=== PATIENT | female | born 1930 | race Caucasian/White ===

== ENCOUNTER 2017-05-27 18:01 | Inpatient (IN) | payer MEDICARE, BC ==
[~2017-05-27] VITALS: Ht 162.6 cm; Wt 52.3 kg
[2017-05-27] MEDS ORDERED: diltiazem-D5W 125mg/125ml 125 ML IV ONE (18:53)
[2017-05-27 18:57] LABS: INR 0.9 INR; PARTIAL THROMBOPLASTIN TIME 21 SECONDS (22-32); PROTHROMBIN TIME 9.8 SECONDS (9.0-12.0)
[2017-05-27 19:00] LABS: ALANINE AMINOTRANSFERASE 49 U/L (12-78); ALBUMIN 3.4 G/DL (3.4-5.0); ALKALINE PHOSPHATASE 84 IU/L (46-116); ANION GAP 12 (8-16); ASPARTATE AMINO TRANSFERASE 50 U/L (10-37); BILIRUBIN,TOTAL 0.3 MG/DL (0.1-1.0); BLOOD UREA NITROGEN 18 MG/DL (7-18); BUN/CREATININE RATIO 14.6 (6.6-38.0); CALCIUM 8.9 MG/DL (8.5-10.1); CHLORIDE 103 MMOL/L (99-107); CREATININE 1.23 MG/DL (0.40-0.90); GLUCOSE 157 MG/DL (70-104); POTASSIUM 3.8 MMOL/L (3.5-5.1); SODIUM 140 MMOL/L (135-145); TOTAL PROTEIN 6.8 G/DL (6.4-8.2); eGFR 41 ML/MIN
[2017-05-27] MEDS ORDERED: ondansetron/PF 4mg/2ml inj IV ONE (19:00)
[2017-05-27 19:03] LABS: TROPONIN I < 0.04 NG/ML (0.0-0.05)
[2017-05-27] MEDS ORDERED: NO HOME MEDS (19:36)
[2017-05-27 20:00] LABS: CLARITY,URINE CLEAR (Clear); COLOR,URINE YELLOW (Yellow); GLUCOSE, URINE NEGATIVE (Neg); KETONES,URINE 40 mg/dl (Neg); LEUKOCYTE ESTERASE ,URINE NEGATIVE (Neg); NITRITES, URINE NEGATIVE (Neg); OCCULT BLOOD,URINE LARGE (Neg); PROTEIN,URINE 100 mg/dl (Neg); UROBILINOGEN,URINE 0.2 E.U/dL (0.2-1.0)
[2017-05-27 20:04] LABS: UA COLLECTION TYPE STRAIGHT CATH
[2017-05-27 20:05] LABS: BASOPHILS % (AUTO) 0.3 % (0-1); EOSINOPHILS % (AUTO) 0.7 % (0-6); HEMATOCRIT 38.6 % (35.0-45.0); HEMOGLOBIN 12.9 g/dl (12.0-16.0); LYMPHOCYTES # (AUTO) 0.5 X10'3 (1.1-4.8); LYMPHOCYTES % (AUTO) 9.7 % (21-51); MEAN CORPUSCULAR HEMOGLOBIN 29.2 PG (27.0-31.0); MEAN CORPUSCULAR HGB CONC 33.3 % (33.0-36.5); MEAN CORPUSCULAR VOLUME 87.7 FL (78-98); MEAN PLATELET VOLUME 8.9 FL (7.4-10.4); MONOCYTES # (AUTO) 0.5 X10'3 (0-0.9); MONOCYTES % (AUTO) 9.9 % (2-12); NEUTROPHILS # (AUTO) 4.1 X10'3 (1.8-7.7); NEUTROPHILS % (AUTO) 79.4 % (42-75); PLATELET COUNT 133 X10'3 (140-440); RED BLOOD COUNT 4.41 X10'6 (4.20-5.60); RED CELL DISTRIBUTION WIDTH 13.9 % (11.5-14.5); WHITE BLOOD COUNT 5.1 X10'3 (4.5-11.0)
[2017-05-27] MEDS ORDERED: LIDOcaine 1% 30ml vial SQ STA (20:07)
[2017-05-27 20:09] LABS: BACTERIA,URINE 1+ /HPF (Neg)
[2017-05-27 20:10] LABS: MUCUS STRANDS FEW /LPF (Neg); SQUAMOUS EPITHELIAL CELL,UR FEW /LPF (FEW)
[2017-05-27 20:11] LABS: AMORPHOUS URATES 1+
[2017-05-27] MEDS ORDERED: temazepam 15mg capsule PO PRN (21:00)
[2017-05-27] MEDS ORDERED: normal saline 1000ml 1,000 ML IV SCH (22:38)
[2017-05-27] MEDS ORDERED: acetaminophen 325mg tablet PO PRN ×2 (22:40)
[2017-05-27] MEDS ORDERED: metoclopramide 5 mg/ml inj IV PRN (22:40)
[2017-05-27] MEDS ORDERED: diphenhydrAMINE 25mg capsule PO PRN (22:40)
[2017-05-27] MEDS ORDERED: bisacodyl 10mg suppository rectal RC PRN (22:40)
[2017-05-27] MEDS ORDERED: acetaminophen 650mg rectal suppository RC PRN (22:40)
[2017-05-27] MEDS ORDERED: mag hydrox/Alum hydrox/simeth 30ml oral suspension PO PRN (22:40)
[2017-05-27] MEDS ORDERED: ondansetron/PF 4mg/2ml inj IV PRN (22:40)
[2017-05-27] MEDS ORDERED: magnesium hydroxide 30ml (MOM) UD suspension PO PRN (22:40)
[2017-05-27] MEDS ORDERED: diphenhydrAMINE 50 mg/ml inj IV PRN (22:40)
[2017-05-27 23:02] LABS: PHOSPHORUS 3.5 MG/DL (2.3-4.5)
[2017-05-27] MEDS: normal saline 1000ml 1,000 ML IV SCH (23:08)
[2017-05-28] VITALS: BP 100/44
[2017-05-28 06:02] LABS: BASOPHILS % (AUTO) 0.3 % (0-1); EOSINOPHILS % (AUTO) 0.7 % (0-6); HEMATOCRIT 33.9 % (35.0-45.0); HEMOGLOBIN 11.3 g/dl (12.0-16.0); LYMPHOCYTES # (AUTO) 0.7 X10'3 (1.1-4.8); LYMPHOCYTES % (AUTO) 19.3 % (21-51); MEAN CORPUSCULAR HEMOGLOBIN 29.1 PG (27.0-31.0); MEAN CORPUSCULAR HGB CONC 33.3 % (33.0-36.5); MEAN CORPUSCULAR VOLUME 87.4 FL (78-98); MEAN PLATELET VOLUME 9.4 FL (7.4-10.4); MONOCYTES # (AUTO) 0.5 X10'3 (0-0.9); NEUTROPHILS # (AUTO) 2.4 X10'3 (1.8-7.7); NEUTROPHILS % (AUTO) 66.7 % (42-75); PLATELET COUNT 130 X10'3 (140-440); RED BLOOD COUNT 3.88 X10'6 (4.20-5.60); RED CELL DISTRIBUTION WIDTH 14.1 % (11.5-14.5); WHITE BLOOD COUNT 3.7 X10'3 (4.5-11.0)
[2017-05-28 06:46] LABS: ALANINE AMINOTRANSFERASE 39 U/L (12-78); ALBUMIN 2.8 G/DL (3.4-5.0); ALKALINE PHOSPHATASE 67 IU/L (46-116); ANION GAP 10 (8-16); ASPARTATE AMINO TRANSFERASE 34 U/L (10-37); BILIRUBIN,TOTAL 0.3 MG/DL (0.1-1.0); BLOOD UREA NITROGEN 19 MG/DL (7-18); BUN/CREATININE RATIO 16.1 (6.6-38.0); CALCIUM 8.3 MG/DL (8.5-10.1); CHLORIDE 105 MMOL/L (99-107); CREATININE 1.18 MG/DL (0.40-0.90); GLUCOSE 100 MG/DL (70-104); POTASSIUM 3.8 MMOL/L (3.5-5.1); SODIUM 140 MMOL/L (135-145); TOTAL CARBON DIOXIDE 24.9 MMOL/L (24-32); TOTAL PROTEIN 5.7 G/DL (6.4-8.2); eGFR 43 ML/MIN
[2017-05-28 07:04] VITALS: BP 109/65
[2017-05-28] MEDS ORDERED: heparin, porcine 5000 units/ml vial SQ SCH (08:00)
[2017-05-28] MEDS: docusate sod 100mg capsule PO SCH ×2 (08:25→19:33)
[2017-05-28] MEDS: pantoprazole 40mg Tablet.DR PO SCH (08:25)
[2017-05-28] MEDS: aspirin 81mg tab.chew PO SCH (08:26)
[2017-05-28] MEDS: normal saline 1000ml 1,000 ML IV SCH ×2 (10:09→20:11)
[2017-05-28 11:00] VITALS: BP 105/50
[2017-05-28 19:00] VITALS: BP 134/62
[2017-05-29] VITALS: BP 149/78
[2017-05-29 05:18] LABS: BASOPHILS % (AUTO) 0.3 % (0-1); EOSINOPHILS % (AUTO) 0.5 % (0-6); HEMATOCRIT 33.1 % (35.0-45.0); HEMOGLOBIN 11.1 g/dl (12.0-16.0); LYMPHOCYTES # (AUTO) 0.5 X10'3 (1.1-4.8); LYMPHOCYTES % (AUTO) 20.3 % (21-51); MEAN CORPUSCULAR HEMOGLOBIN 29.1 PG (27.0-31.0); MEAN CORPUSCULAR HGB CONC 33.7 % (33.0-36.5); MEAN CORPUSCULAR VOLUME 86.4 FL (78-98); MONOCYTES # (AUTO) 0.4 X10'3 (0-0.9); MONOCYTES % (AUTO) 13.1 % (2-12); NEUTROPHILS # (AUTO) 1.8 X10'3 (1.8-7.7); NEUTROPHILS % (AUTO) 65.8 % (42-75); PLATELET COUNT 117 X10'3 (140-440); RED BLOOD COUNT 3.83 X10'6 (4.20-5.60); RED CELL DISTRIBUTION WIDTH 13.9 % (11.5-14.5); WHITE BLOOD COUNT 2.7 X10'3 (4.5-11.0)
[2017-05-29] MEDS: normal saline 1000ml 1,000 ML IV SCH ×2 (05:47→15:25)
[2017-05-29 05:48] LABS: ALANINE AMINOTRANSFERASE 46 U/L (12-78); ALBUMIN 2.7 G/DL (3.4-5.0); ALBUMIN/GLOBULIN RATIO 0.9 (1.1-1.5); ALKALINE PHOSPHATASE 72 IU/L (46-116); ANION GAP 7 (8-16); ASPARTATE AMINO TRANSFERASE 51 U/L (10-37); BILIRUBIN,TOTAL 0.3 MG/DL (0.1-1.0); BLOOD UREA NITROGEN 12 MG/DL (7-18); BUN/CREATININE RATIO 13.6 (6.6-38.0); CALCIUM 8.3 MG/DL (8.5-10.1); CHLORIDE 102 MMOL/L (99-107); CREATININE 0.88 MG/DL (0.40-0.90); GLUCOSE 99 MG/DL (70-104); POTASSIUM 3.4 MMOL/L (3.5-5.1); SODIUM 134 MMOL/L (135-145); TOTAL CARBON DIOXIDE 25.4 MMOL/L (24-32); TOTAL PROTEIN 5.6 G/DL (6.4-8.2); eGFR 61 ML/MIN
[2017-05-29 07:52] LABS: TOTAL CELLS COUNTED 100
[2017-05-29 07:53] LABS: PLATELET ESTIMATE DECREASED
[2017-05-29 08:00] VITALS: BP 144/89
[2017-05-29] MEDS: docusate sod 100mg capsule PO SCH ×2 (08:25→20:02)
[2017-05-29] MEDS: aspirin 81mg tab.chew PO SCH (08:26)
[2017-05-29] MEDS: pantoprazole 40mg Tablet.DR PO SCH (08:26)
[2017-05-29] MEDS ORDERED: magnesium 4gm in 100ml NS 100 ML IV PRN (11:10)
[2017-05-29] MEDS ORDERED: magnesium 2GM in 50ml NS 50 ML IV PRN (11:10)
[2017-05-29] MEDS ORDERED: potassium Cl 20 mEq SR tablet PO PRN (11:10)
[2017-05-29] MEDS ORDERED: potassium Cl 40MEQ/NS 500ml 500 ML IV PRN ×2 (11:10)
[2017-05-29] MEDS ORDERED: magnesium Cl slow-release 64mg tablet PO PRN (11:10)
[2017-05-29 12:00] VITALS: BP 125/64
[2017-05-29] MEDS: potassium Cl 20 mEq SR tablet PO PRN ×2 (16:38→22:55)
[2017-05-29 18:00] VITALS: BP 123/68
[2017-05-29] MEDS: LACTOSE-FREE FOOD 237ML (BOOST) PO SCH (18:00)
[2017-05-29] MEDS: apixaban 2.5mg tablet PO SCH (20:02)
[2017-05-30] VITALS (8 sets, daily range): BP systolic 114–142; BP diastolic 49–73
[2017-05-30] MEDS: normal saline 1000ml 1,000 ML IV SCH (01:23)
[2017-05-30 05:16] LABS: BASOPHILS % (AUTO) 0.5 % (0-1); EOSINOPHILS % (AUTO) 0.5 % (0-6); HEMATOCRIT 35.6 % (35.0-45.0); LYMPHOCYTES # (AUTO) 0.8 X10'3 (1.1-4.8); LYMPHOCYTES % (AUTO) 31.5 % (21-51); MEAN CORPUSCULAR HEMOGLOBIN 28.9 PG (27.0-31.0); MEAN CORPUSCULAR HGB CONC 33.6 % (33.0-36.5); MEAN CORPUSCULAR VOLUME 86.1 FL (78-98); MEAN PLATELET VOLUME 9.1 FL (7.4-10.4); MONOCYTES # (AUTO) 0.5 X10'3 (0-0.9); MONOCYTES % (AUTO) 19.7 % (2-12); NEUTROPHILS # (AUTO) 1.2 X10'3 (1.8-7.7); NEUTROPHILS % (AUTO) 47.8 % (42-75); PLATELET COUNT 123 X10'3 (140-440); RED BLOOD COUNT 4.13 X10'6 (4.20-5.60); RED CELL DISTRIBUTION WIDTH 13.7 % (11.5-14.5); WHITE BLOOD COUNT 2.5 X10'3 (4.5-11.0)
[2017-05-30 05:29] LABS: ALANINE AMINOTRANSFERASE 57 U/L (12-78); ALBUMIN 2.6 G/DL (3.4-5.0); ALBUMIN/GLOBULIN RATIO 0.9 (1.1-1.5); ALKALINE PHOSPHATASE 78 IU/L (46-116); ANION GAP 10 (8-16); ASPARTATE AMINO TRANSFERASE 57 U/L (10-37); BILIRUBIN,TOTAL 0.4 MG/DL (0.1-1.0); BLOOD UREA NITROGEN 10 MG/DL (7-18); BUN/CREATININE RATIO 11.8 (6.6-38.0); CHLORIDE 106 MMOL/L (99-107); CREATININE 0.85 MG/DL (0.40-0.90); GLUCOSE 102 MG/DL (70-104); MAGNESIUM 1.8 MG/DL (1.5-2.4); POTASSIUM 3.7 MMOL/L (3.5-5.1); SODIUM 140 MMOL/L (135-145); TOTAL CARBON DIOXIDE 24.3 MMOL/L (24-32); TOTAL PROTEIN 5.5 G/DL (6.4-8.2); eGFR 63 ML/MIN
[2017-05-30 05:34] LABS: CALCIUM 8.5 MG/DL (8.5-10.1)
[2017-05-30 08:09] LABS: PLATELET ESTIMATE DECREASED; TOTAL CELLS COUNTED 50
[2017-05-30] MEDS: pantoprazole 40mg Tablet.DR PO SCH (08:44)
[2017-05-30] MEDS: aspirin 81mg tab.chew PO SCH (08:45)
[2017-05-30] MEDS: LACTOSE-FREE FOOD 237ML (BOOST) PO SCH ×3 (08:45→18:10)
[2017-05-30] MEDS: apixaban 2.5mg tablet PO SCH ×2 (08:45→21:35)
[2017-05-30] MEDS: docusate sod 100mg capsule PO SCH ×2 (08:45→21:35)
[2017-05-31] VITALS: BP 143/57
[2017-05-31 04:13] LABS: HEMATOCRIT 35.1 % (35.0-45.0); HEMOGLOBIN 11.8 g/dl (12.0-16.0); MEAN CORPUSCULAR HEMOGLOBIN 28.8 PG (27.0-31.0); MEAN CORPUSCULAR HGB CONC 33.6 % (33.0-36.5); MEAN CORPUSCULAR VOLUME 85.7 FL (78-98); MEAN PLATELET VOLUME 8.9 FL (7.4-10.4); PLATELET COUNT 127 X10'3 (140-440); RED CELL DISTRIBUTION WIDTH 13.6 % (11.5-14.5); WHITE BLOOD COUNT 2.8 X10'3 (4.5-11.0)
[2017-05-31 04:20] LABS: ALANINE AMINOTRANSFERASE 57 U/L (12-78); ALBUMIN 2.7 G/DL (3.4-5.0); ALBUMIN/GLOBULIN RATIO 0.9 (1.1-1.5); ALKALINE PHOSPHATASE 85 IU/L (46-116); ANION GAP 7 (8-16); ASPARTATE AMINO TRANSFERASE 54 U/L (10-37); BILIRUBIN,TOTAL 0.4 MG/DL (0.1-1.0); BLOOD UREA NITROGEN 12 MG/DL (7-18); BUN/CREATININE RATIO 12.5 (6.6-38.0); CALCIUM 8.6 MG/DL (8.5-10.1); CHLORIDE 105 MMOL/L (99-107); CREATININE 0.96 MG/DL (0.40-0.90); GLUCOSE 105 MG/DL (70-104); MAGNESIUM 1.8 MG/DL (1.5-2.4); POTASSIUM 3.8 MMOL/L (3.5-5.1); SODIUM 140 MMOL/L (135-145); TOTAL CARBON DIOXIDE 28.5 MMOL/L (24-32); TOTAL PROTEIN 5.7 G/DL (6.4-8.2); eGFR 55 ML/MIN
[2017-05-31 07:00] VITALS: BP 128/65
[2017-05-31 07:55] LABS: TOTAL CELLS COUNTED 100
[2017-05-31 07:57] LABS: PLATELET ESTIMATE DECREASED
[2017-05-31 08:00] VITALS: BP_SYST 103; BP_SYST 110; BP_SYST 117; BP_DIAS 50; BP_DIAS 57; BP_DIAS 64
[2017-05-31] MEDS: aspirin 81mg tab.chew PO SCH (08:33)
[2017-05-31] MEDS: docusate sod 100mg capsule PO SCH (08:33)
[2017-05-31] MEDS: LACTOSE-FREE FOOD 237ML (BOOST) PO SCH ×2 (08:33→13:00)
[2017-05-31] MEDS: pantoprazole 40mg Tablet.DR PO SCH (08:33)
[2017-05-31] MEDS: apixaban 2.5mg tablet PO SCH (08:33)
== END 2017-05-31 17:32 | DRG 682 ==
LOC: ER 18:02 → ED HOLD 22:38 → SUR 3N 23:30
PROVIDERS: ADMIT Family Medicine; ATTEND Family Medicine
PROC: 0HQ0XZZ Repair Scalp Skin, External Approach (ICD-10-PCS; principal; 2017-05-27)
DX: N17.9 Acute kidney failure, unspecified (principal); I50.33 Acute on chronic diastolic (congestive) heart failure; D61.818 Other pancytopenia; D69.6 Thrombocytopenia, unspecified; I48.0 Paroxysmal atrial fibrillation; E87.1 Hypo-osmolality and hyponatremia; R55 Syncope and collapse; E87.6 Hypokalemia; K21.9 Gastro-esophageal reflux disease without esophagitis; I13.0 Hypertensive heart and chronic kidney disease with heart failure and stage 1 through stage 4 chronic kidney disease, or unspecified chronic kidney disease; S01.01XA Laceration without foreign body of scalp, initial encounter; Z60.2 Problems related to living alone; R74.0 Nonspecific elevation of levels of transaminase and lactic acid dehydrogenase [LDH]; N18.9 Chronic kidney disease, unspecified; R29.6 Repeated falls; Z91.81 History of falling; Z88.5 Allergy status to narcotic agent; Z88.0 Allergy status to penicillin; Z88.1 Allergy status to other antibiotic agents; Z91.040 Latex allergy status
CPT/HCPCS: 12001; 36415; 70450; 71010; 80053; 81001; 83735; 83880; 84100; 84484; 85025; 85610; 85730; 87070; 87088; 93306; 93880; 96374; 96375; 97116; 97161; 97530; 99285; A6449; J1644; J2405; J3490; J7030

== ENCOUNTER 2018-12-30 14:01 | Emergency (ER) | payer MEDICARE, BC ==
[~2018-12-30] VITALS: Ht 162.6 cm; Wt 52.3 kg
[~2018-12-30 14:01] MED LIST: NO HOME MEDS
[2018-12-30 14:03] VITALS: BP 143/43
[2018-12-30] MEDS ORDERED: bacitracin 15gm ointment TP ONE (15:20)
== END 2018-12-30 15:45 | disposition home or self-care (01) ==
LOC: ER 14:01
DX: S81.811A Laceration without foreign body, right lower leg, initial encounter (principal); Z88.0 Allergy status to penicillin; Z88.5 Allergy status to narcotic agent; Z88.1 Allergy status to other antibiotic agents; Z91.040 Latex allergy status; W22.8XXA Striking against or struck by other objects, initial encounter; Y93.89 Activity, other specified; Y92.89 Other specified places as the place of occurrence of the external cause; Y99.8 Other external cause status
CPT/HCPCS: 99282

== ENCOUNTER 2019-01-04 09:53 | Emergency (ER) | payer MEDICARE, BC ==
[~2019-01-04] VITALS: Ht 162.6 cm; Wt 53.8 kg
[2019-01-04 10:12] VITALS: BP 134/80
[2019-01-04] MEDS ORDERED: TETanus/Pertussis (Acell)/Diphther VAC/PF (Tdap-Adult) 0.5ml syringe IMVAC ONE (11:45)
[2019-01-04] MEDS ORDERED: cephalexin 250mg capsule PO ONE (12:00)
[2019-01-04] MEDS ORDERED: CEPH500C5 PO (12:04)
== END 2019-01-04 12:21 | disposition home or self-care (01) ==
LOC: ER 09:53
DX: L08.89 Other specified local infections of the skin and subcutaneous tissue (principal); Z88.0 Allergy status to penicillin; Z88.5 Allergy status to narcotic agent; Z88.1 Allergy status to other antibiotic agents; Z91.040 Latex allergy status
CPT/HCPCS: 90471; 99283

== ENCOUNTER 2019-01-15 14:34 | Emergency (ER) | payer MEDICARE, BC ==
[~2019-01-15] VITALS: Ht 162.6 cm; Wt 55.0 kg
[~2019-01-15 14:34] MED LIST changes: +CEPH500C5 PO
[2019-01-15 14:39] VITALS: BP 144/38
== END 2019-01-15 15:30 | disposition home or self-care (01) ==
LOC: ER 14:35
DX: S81.811D Laceration without foreign body, right lower leg, subsequent encounter (principal); L08.9 Local infection of the skin and subcutaneous tissue, unspecified; E78.00 Pure hypercholesterolemia, unspecified; Z60.2 Problems related to living alone; Z88.0 Allergy status to penicillin; Z88.5 Allergy status to narcotic agent; Z88.1 Allergy status to other antibiotic agents; Z91.040 Latex allergy status; Z88.8 Allergy status to other drugs, medicaments and biological substances; Z79.899 Other long term (current) drug therapy; X58.XXXD Exposure to other specified factors, subsequent encounter
CPT/HCPCS: 99284

== ENCOUNTER 2019-02-25 08:44 | Emergency (ER) | payer MEDICARE, BC ==
[~2019-02-25] VITALS: Ht 167.6 cm; Wt 80.0 kg
[2019-02-25 09:56] LABS: BASOPHILS % (AUTO) 0.4 % (0-1); EOSINOPHILS # (AUTO) 0.1 X10'3 (0-0.9); EOSINOPHILS % (AUTO) 0.7 % (0-6); HEMATOCRIT 39.2 % (35.0-45.0); HEMOGLOBIN 12.9 g/dl (12.0-16.0); LYMPHOCYTES % (AUTO) 10.4 % (21-51); MEAN CORPUSCULAR HEMOGLOBIN 29.2 PG (27.0-31.0); MEAN CORPUSCULAR VOLUME 88.2 FL (78-98); MEAN PLATELET VOLUME 9.1 FL (7.4-10.4); MONOCYTES # (AUTO) 0.8 X10'3 (0-0.9); MONOCYTES % (AUTO) 8.3 % (2-12); NEUTROPHILS # (AUTO) 7.9 X10'3 (1.8-7.7); NEUTROPHILS % (AUTO) 80.2 % (42-75); PLATELET COUNT 201 X10'3 (140-440); RED BLOOD COUNT 4.44 X10'6 (4.20-5.60); RED CELL DISTRIBUTION WIDTH 13.4 % (11.5-14.5); WHITE BLOOD COUNT 9.8 X10'3 (4.5-11.0)
[2019-02-25 10:04] LABS: ALANINE AMINOTRANSFERASE 22 U/L (12-78); ALBUMIN 3.6 G/DL (3.4-5.0); ALBUMIN/GLOBULIN RATIO 1.2 (1.1-1.5); ALKALINE PHOSPHATASE 86 IU/L (46-116); ANION GAP 8 (8-16); ASPARTATE AMINO TRANSFERASE 19 U/L (10-37); BILIRUBIN,TOTAL 0.9 MG/DL (0.1-1.0); BLOOD UREA NITROGEN 16 MG/DL (7-18); CHLORIDE 106 MMOL/L (99-107); CREATININE 1.23 MG/DL (0.40-0.90); GLUCOSE 105 MG/DL (70-104); LIPASE 124 U/L (73-393); POTASSIUM 3.3 MMOL/L (3.5-5.1); SODIUM 142 MMOL/L (135-145); TOTAL CARBON DIOXIDE 27.6 MMOL/L (24-32); TOTAL PROTEIN 6.7 G/DL (6.4-8.2); eGFR 41 ML/MIN
[2019-02-25] MEDS ORDERED: normal saline 1000ml 1,000 ML IV ONE (10:30)
[2019-02-25 10:37] LABS: CLARITY,URINE CLEAR (Clear); COLOR,URINE YELLOW (Yellow); GLUCOSE, URINE NEGATIVE (Neg); KETONES,URINE 15 mg/dl (Neg); LEUKOCYTE ESTERASE ,URINE NEGATIVE (Neg); NITRITES, URINE NEGATIVE (Neg); OCCULT BLOOD,URINE MODERATE (Neg); PH,URINE 5.5 (4.8-8.0); PROTEIN,URINE TRACE mg/dl (Neg); UROBILINOGEN,URINE 0.2 E.U/dL (0.2-1.0)
[2019-02-25 10:47] LABS: UA COLLECTION TYPE CLN CATCH MIDSTREAM
[2019-02-25 10:56] LABS: COARSE GRANULAR CAST 0-3 /LPF (NEGATIVE); HYALINE CASTS 0-3 /LPF (NEGATIVE); SQUAMOUS EPITHELIAL CELL,UR FEW /LPF (FEW)
[2019-02-25 10:59] LABS: MUCUS STRANDS MODERATE /LPF (Neg)
[2019-02-25 11:00] LABS: BACTERIA,URINE FEW /HPF (Neg); RENAL CELLS, URINE FEW /HPF; WBC,URINE 0-4 /HPF (0-4)
[2019-02-25] MEDS ORDERED: ONDA4TAB6 PO (11:26)
[2019-02-25 12:01] VITALS: BP 132/58
== END 2019-02-25 12:03 | disposition home or self-care (01) ==
LOC: ER 08:45
DX: R19.7 Diarrhea, unspecified (principal); E78.00 Pure hypercholesterolemia, unspecified; Z88.0 Allergy status to penicillin; Z88.5 Allergy status to narcotic agent; Z88.1 Allergy status to other antibiotic agents; Z79.2 Long term (current) use of antibiotics; Z79.899 Other long term (current) drug therapy
CPT/HCPCS: 36415; 80053; 81001; 83690; 85025; 96360; 99284; J7030

== ENCOUNTER 2019-09-16 14:12 | Emergency (ER) | payer MEDICARE, BC ==
[~2019-09-16] VITALS: Ht 163.8 cm; Wt 56.0 kg
[~2019-09-16 14:12] MED LIST changes: +ONDA4TAB6 PO
[2019-09-16 14:14] VITALS: BP 157/68
[2019-09-16] MEDS ORDERED: dexamethasone sod phosphate 10mg/ml inj IM STA (14:52)
[2019-09-16] MEDS ORDERED: diphenhydrAMINE 25mg capsule PO ONE (14:55)
[2019-09-17] MEDS ORDERED: CLIN150C99 PO (22:47)
== END 2019-09-16 15:04 | disposition home or self-care (01) ==
LOC: ER 14:12
DX: L23.9 Allergic contact dermatitis, unspecified cause (principal); Z60.2 Problems related to living alone; Z88.0 Allergy status to penicillin; Z88.5 Allergy status to narcotic agent; Z88.1 Allergy status to other antibiotic agents; Z91.040 Latex allergy status; Z79.2 Long term (current) use of antibiotics; Z79.899 Other long term (current) drug therapy
CPT/HCPCS: 96372; 99283; J1100; Q0163

== ENCOUNTER 2019-09-17 22:07 | Emergency (ER) | payer MEDICARE, BC ==
[~2019-09-17] VITALS: Ht 162.6 cm; Wt 56.8 kg
[2019-09-17] MEDS ORDERED: CLIN150C99 PO (22:47)
[2019-09-17 23:11] VITALS: BP 158/60
== END 2019-09-17 23:13 | disposition home or self-care (01) ==
LOC: ER 22:07
DX: A46 Erysipelas (principal); R22.0 Localized swelling, mass and lump, head; R21 Rash and other nonspecific skin eruption; Z60.2 Problems related to living alone; Z88.5 Allergy status to narcotic agent; Z88.0 Allergy status to penicillin; Z88.4 Allergy status to anesthetic agent; Z91.040 Latex allergy status; Z79.2 Long term (current) use of antibiotics; Z79.899 Other long term (current) drug therapy
CPT/HCPCS: 99283

== ENCOUNTER 2019-09-19 12:53 | Emergency (ER) | payer MEDICARE, BC ==
[~2019-09-19] VITALS: Ht 160 cm; Wt 56.8 kg
[~2019-09-19 12:53] MED LIST changes: +CLIN150C99 PO
[2019-09-19 12:55] VITALS: BP 135/40
[2019-09-19] MEDS ORDERED: PRED10TA23 PO (13:23)
--- NOTE | 2019-09-19 13:34 | NUR ---
PT. SEEN AND EXAM DONE BY PA. HAJI. PT. DISCHARGED
== END 2019-09-19 13:40 | disposition home or self-care (01) ==
LOC: ER 12:53
DX: R21 Rash and other nonspecific skin eruption (principal); E78.00 Pure hypercholesterolemia, unspecified; Z88.0 Allergy status to penicillin; Z88.1 Allergy status to other antibiotic agents; Z88.5 Allergy status to narcotic agent; Z91.040 Latex allergy status; Z79.899 Other long term (current) drug therapy
CPT/HCPCS: 99283

== ENCOUNTER 2019-09-20 09:04 | Emergency (ER) | payer MEDICARE, BC ==
[~2019-09-20] VITALS: Ht 162.6 cm; Wt 56.8 kg
[~2019-09-20 09:04] MED LIST changes: +PRED10TA23 PO
[2019-09-20] MEDS ORDERED: diphenhydrAMINE 25mg capsule PO ONE (09:10)
[2019-09-20] MEDS ORDERED: dexamethasone sod phosphate 10mg/ml inj IM STA (09:10)
[2019-09-20 09:23] VITALS: BP 154/60
== END 2019-09-20 09:47 | disposition home or self-care (01) ==
LOC: ER 09:04
DX: R21 Rash and other nonspecific skin eruption (principal); E78.00 Pure hypercholesterolemia, unspecified; Z60.2 Problems related to living alone; Z88.5 Allergy status to narcotic agent; Z88.0 Allergy status to penicillin; Z88.1 Allergy status to other antibiotic agents; Z91.040 Latex allergy status; Z79.2 Long term (current) use of antibiotics; Z79.899 Other long term (current) drug therapy
CPT/HCPCS: 96372; 99283; J1100; Q0163

== ENCOUNTER 2019-10-23 13:35 | Emergency (ER) | payer MEDICARE, BC ==
[~2019-10-23] VITALS: Ht 162.6 cm; Wt 51.0 kg
[~2019-10-23 13:35] MED LIST changes: -CLIN150C99 PO; -PRED10TA23 PO
[2019-10-23 17:35] LABS: BASOPHILS % (AUTO) 1.1 % (0-1); EOSINOPHILS # (AUTO) 0.1 X10'3 (0-0.9); EOSINOPHILS % (AUTO) 2.5 % (0-6); HEMATOCRIT 37.4 % (35.0-45.0); HEMOGLOBIN 12.4 g/dl (12.0-16.0); LYMPHOCYTES # (AUTO) 1.4 X10'3 (1.1-4.8); LYMPHOCYTES % (AUTO) 30.5 % (21-51); MEAN CORPUSCULAR HEMOGLOBIN 29.4 PG (27.0-31.0); MEAN CORPUSCULAR HGB CONC 33.1 g/dL (33.0-36.5); MEAN CORPUSCULAR VOLUME 88.8 FL (78-98); MEAN PLATELET VOLUME 8.6 FL (7.4-10.4); MONOCYTES # (AUTO) 0.4 X10'3 (0-0.9); MONOCYTES % (AUTO) 9.7 % (2-12); NEUTROPHILS # (AUTO) 2.5 X10'3 (1.8-7.7); NEUTROPHILS % (AUTO) 56.2 % (42-75); PLATELET COUNT 219 X10'3 (140-440); RED BLOOD COUNT 4.21 X10'6 (4.20-5.60); RED CELL DISTRIBUTION WIDTH 14.1 % (11.5-14.5); WHITE BLOOD COUNT 4.5 X10'3 (4.5-11.0)
[2019-10-23 17:45] LABS: PARTIAL THROMBOPLASTIN TIME 42 SECONDS (22-32)
[2019-10-23 17:47] LABS: ALANINE AMINOTRANSFERASE 16 U/L (12-78); ALBUMIN 3.5 G/DL (3.4-5.0); ALBUMIN/GLOBULIN RATIO 1.1 (1.1-1.5); ALKALINE PHOSPHATASE 82 IU/L (46-116); ANION GAP 6 (8-16); ASPARTATE AMINO TRANSFERASE 20 U/L (10-37); BILIRUBIN,TOTAL 0.5 MG/DL (0.1-1.0); BLOOD UREA NITROGEN 20 MG/DL (7-18); BUN/CREATININE RATIO 17.1 (6.6-38.0); CHLORIDE 108 MMOL/L (99-107); CREATININE 1.17 MG/DL (0.40-0.90); GLUCOSE 96 MG/DL (70-104); POTASSIUM 4.4 MMOL/L (3.5-5.1); SODIUM 143 MMOL/L (135-145); TOTAL CARBON DIOXIDE 29.1 MMOL/L (24-32); TOTAL PROTEIN 6.6 G/DL (6.4-8.2); eGFR 44 ML/MIN
[2019-10-23 18:15] VITALS: BP 161/63
== END 2019-10-23 18:16 | disposition home or self-care (01) ==
LOC: ER 13:36
DX: S90.31XA Contusion of right foot, initial encounter (principal); M25.471 Effusion, right ankle; M79.89 Other specified soft tissue disorders; E78.00 Pure hypercholesterolemia, unspecified; Z60.2 Problems related to living alone; Z88.5 Allergy status to narcotic agent; Z88.0 Allergy status to penicillin; Z88.1 Allergy status to other antibiotic agents; Z91.040 Latex allergy status; Z79.2 Long term (current) use of antibiotics; Z79.899 Other long term (current) drug therapy; X58.XXXA Exposure to other specified factors, initial encounter; Y93.89 Activity, other specified; Y92.89 Other specified places as the place of occurrence of the external cause; Y99.8 Other external cause status
CPT/HCPCS: 36415; 73610; 73630; 80053; 83880; 85025; 85610; 85730; 93971; 99284; 99285